=== PATIENT | male | born 1990 | race Caucasian/White ===

== ENCOUNTER 2018-08-02 16:47 | Day surgery (SDC) | payer OTHER ==
[2018-07-30 13:35] VITALS: BMI 28.3
[2018-08-02] MEDS ORDERED: fentaNYL CITRATE 250 MCG/5 ML VIAL ONE (18:26)
[2018-08-02] MEDS ORDERED: MIDAZOLAM HCL 2 MG/2 ML SINGLE DOSE VIAL ONE ×2 (18:26→18:29)
--- NOTE | 2018-08-02 18:40 | OP ---
Operative Note - Note: Operative Date: 08/02/18 Pre-Operative Diagnosis: Right renal stone Operation: Right ESWL Findings: 4 mm R kidney middle pole stone Surgeon: Aman Brown Anesthesia: Fractional Estimated Blood Loss (mls): 0
[2018-08-02] MEDS ORDERED: ACETAMINOPHEN 325 MG TABLET (FP) PO ONE (19:57)
[2018-08-02] MEDS ORDERED: ACETAMINOPHEN 325 MG TABLET (FP) ONE (20:02)
[2018-08-02 20:56] VITALS: BP 117/71; PULSE 71; TEMP 98.2
--- NOTE | 2018-08-03 10:04 | OP ---
DATE OF OPERATION: 08/02/2018 PREOPERATIVE DIAGNOSIS: Right renal stone. POSTOPERATIVE DIAGNOSIS: Right renal stone. PROCEDURE: Right extracorporeal shockwave lithotripsy. ATTENDING: Sera Boogie MD ANESTHESIA: Fractional. OPERATION: The patient was brought in the operating room, placed in the supine position on the operating room table. Ultrasonography and fluoroscopy were performed. A 6-mm right mid pole stone was identified. Anesthesia and preoperative antibiotics were then administered. Shockwave lithotripsy was subsequently performed. No complications were noted. The patient tolerated the procedure very well. The disposition of the patient was to the recovery room. SERA BOOGIE M.D. [id number]
== END 2018-08-02 20:25 | disposition home or self-care (01) ==
LOC: JASU-SURG 16:47
PROVIDERS: ATTEND Urology
PROC: 0TF3XZZ Fragmentation in Right Kidney Pelvis, External Approach (ICD-10-PCS; principal; 2018-08-02 18:30)
DX: N20.0 Calculus of kidney (principal)